=== PATIENT | female | born 1955 | race African-American/Black ===

== ENCOUNTER 2024-05-21 00:57 | Inpatient (IN) | payer OTHER ==
[~2024-05-21] VITALS: Ht 147.3 cm; Wt 78.1 kg
[2024-05-21 02:23] LABS: Basophils # (auto) 0.1 10 ^3/uL (0-0.2); Basophils % (auto) 0.7 % (0.0-2.0); Eosinophils # (auto) 0.4 10 ^3/uL (0-0.8); Eosinophils % (auto) 3.6 % (0.0-7.0); Hematocrit 27.5 % (36.0-46.0); Hemoglobin 9.4 g/dL (12.2-16.2); Lymphocytes # (auto) 2.1 10 ^3/uL (0.4-5.4); Lymphocytes % (auto) 20.6 % (10.0-50.0); Mean Corpuscular Hemoglobin 30.3 pg (28.0-32.0); Mean Corpuscular Hgb Conc. 34.1 g/dL (32.0-36.0); Mean Corpuscular Volume 88.8 fL (80.0-100.0); Monocytes # (auto) 0.7 10 ^3/uL (0-1.3); Neutrophils # (auto) 6.9 10 ^3/uL (1.6-8.6); Neutrophils % (auto) 68.1 % (37.0-80.0); Platelet Count (auto) 258 10^3/uL (140-450); Red Cell Distribution Width 14.4 % (11.8-14.3); White Blood Cell 10.2 10^3/uL (4.4-10.8)
[2024-05-21 02:30] LABS: Chloride 107 mmol/L (98-107); Potassium 5.3 mmol/L (3.5-5.1); Sodium 137 mmol/L (136-145)
[2024-05-21 02:31] LABS: Anion Gap 4 (5-15); Calcium 9.8 mg/dL (8.7-10.4); Carbon Dioxide 26 mmol/L (20-31)
[2024-05-21 02:33] LABS: INR 0.94 (0.9-1.15)
[2024-05-21 02:36] LABS: BUN/Creatinine Ratio 10.7 (10.0-20.0); Blood Urea Nitrogen 50 mg/dL (9-23); Glucose 107 mg/dL (74-106)
[2024-05-21 05:30] VITALS: PULSE 78; RESP 16; O2SAT 95
[2024-05-21] MEDS: LABETALOL HCL 20 MG/4 ML VL IV ONE (05:47)
[2024-05-21] MEDS: ASPirin 81 mg TAB PO ONE (05:55)
[2024-05-21] MEDS: HYDROcodone-ACET 5/325MG TAB PO ONE (09:27)
[2024-05-21 09:31] VITALS: PULSE 76; RESP 18; O2SAT 95
[2024-05-21] MEDS: hydrALAZINE HCL 20 MG/ML VL IV ONE (12:07)
[2024-05-21] MEDS ORDERED: DEXTROSE (50%) 50ML SYRG IV PRN (12:15)
[2024-05-21] MEDS ORDERED: NITROGLYCERIN 0.4 MG SL TAB SL PRN (12:15)
[2024-05-21] MEDS ORDERED: LABETALOL HCL 20 MG/4 ML VL IV PRN (12:30)
[2024-05-21] MEDS: METOPROLOL TARTRATE 50 MG TAB PO ONE (13:12)
[2024-05-21] MEDS: ENOXAPARIN SOD 30 MG/0.3 ML SYRINGE SC ONE (13:13)
[2024-05-21] MEDS: FUROSEMIDE 20 MG/2 ML VIAL IV ONE (13:13)
[2024-05-21 13:51] LABS: Creatinine, Urine 20.82 mg/dL (30.0-125.0)
[2024-05-21 14:08] LABS: Urine Bacteria FEW /hpf (None Seen); Urine Blood Negative /uL (Negative); Urine Clarity Clear (Clear); Urine Color Colorless (Yellow); Urine Protein, UAD 2+ (Negative); Urine Specific Gravity 1.005 (1.001-1.035); Urine Urobilinogen Normal (Negative); Urine WBC 2 /hpf (0 - 5)
[2024-05-21 14:12] LABS: Albumin 4.5 g/dL (3.2-4.8); Bilirubin, Direct 0.1 mg/dL (<0.3); Bilirubin, Total 0.5 mg/dL (0.2-1.0); Magnesium 3.5 mg/dL (1.6-2.6); Total Protein 7.1 g/dL (5.7-8.2)
[2024-05-21 15:19] LABS: Triglycerides 156 mg/dL (< 150)
[2024-05-21 15:20] LABS: LDL Cholesterol 79 mg/dL (< 100)
[2024-05-21 15:21] LABS: Cholesterol 150 mg/dL (< 200); HDL Cholesterol 43 mg/dL (40-59)
[2024-05-21] MEDS: NIFEdipine ER 30 MG TAB PO ONE (16:05)
[2024-05-21] MEDS: InsuLIN REG 1unit/0.01ml Soln (100units/ml) SC SCH (17:00)
[2024-05-21 17:20] VITALS: PULSE 84; RESP 17; O2SAT 96
[2024-05-21] MEDS: ACCU-CHEK COMFORT CURVE STRIP VI SCH (17:24)
[2024-05-21] MEDS: FUROSEMIDE 20 MG/2 ML VIAL IV SCH (18:09)
[2024-05-21] MEDS: hydrALAZINE HCL 20 MG/ML VL IV PRN (18:10)
[2024-05-21] MEDS ORDERED: amLODIPine BESYLATE 5 MG TAB PO ONE (19:00)
[2024-05-21 19:35] VITALS: PULSE 77; RESP 13; O2SAT 94
[2024-05-21] MEDS: CARVEDILOL 12.5 MG TAB PO SCH (21:59)
[2024-05-21] MEDS: ATORVASTATIN 20 MG TAB PO SCH (22:00)
[2024-05-21] MEDS ORDERED: METOPROLOL TARTRATE 50 MG TAB PO SCH (22:00)
[2024-05-21 23:28] VITALS: BP 132/63; PULSE 71; RESP 15; RESP 17; TEMP 95.4; O2SAT 97
[2024-05-22] VITALS (7 sets, daily range): BP systolic 120–133; BP diastolic 42–59; PULSE 64–82; RESP 18–20; TEMP 97.8–98.5; O2SAT 94–99
[2024-05-22] MEDS: OXYMETAZOLINE HCL 0.05 % NASAL SPRAY 15ML EACHNOSTRI SCH (00:02)
[2024-05-22] MEDS ORDERED: CLON0.1T PO (00:47)
[2024-05-22] MEDS ORDERED: ASPI1TAB20 PO (00:47)
[2024-05-22] MEDS ORDERED: METO25TA5 PO (00:47)
[2024-05-22] MEDS ORDERED: ATOR20TA50 PO (00:47)
[2024-05-22] MEDS ORDERED: MULT-1018 PO (00:47)
[2024-05-22] MEDS ORDERED: CHOL10006 PO (00:47)
[2024-05-22] MEDS: NIFEdipine ER 30 MG TAB PO SCH (10:44)
[2024-05-22] MEDS: ASPirin 81 mg TAB PO SCH (10:46)
[2024-05-22] MEDS: ENOXAPARIN SOD 30 MG/0.3 ML SYRINGE SC SCH (10:47)
[2024-05-22] MEDS: HYDROcodone-ACET 5/325MG TAB PO PRN (10:57)
[2024-05-22] MEDS: ONDANSETRON HCL 4 MG/2 ML VIAL IV PRN (17:31)
[2024-05-23 05:00] VITALS: BP 109/58; PULSE 73; RESP 18; TEMP 98; O2SAT 100
[2024-05-23 07:16] VITALS: PULSE 70
[2024-05-23 07:37] LABS: Anion Gap 10 (5-15); Carbon Dioxide 23 mmol/L (20-31); Chloride 103 mmol/L (98-107); Potassium 4.7 mmol/L (3.5-5.1); Sodium 136 mmol/L (136-145)
[2024-05-23 07:38] LABS: Calcium 9.3 mg/dL (8.7-10.4)
[2024-05-23 07:43] LABS: BUN/Creatinine Ratio 8.3 (10.0-20.0); Blood Urea Nitrogen 42 mg/dL (9-23); Glucose 110 mg/dL (74-106)
[2024-05-23 07:45] LABS: Phosphorus 6.4 mg/dL (2.4-5.1)
[2024-05-23 07:48] LABS: Basophils # (auto) 0 10 ^3/uL (0-0.2); Basophils % (auto) 0.6 % (0.0-2.0); Eosinophils # (auto) 0.3 10 ^3/uL (0-0.8); Eosinophils % (auto) 4.7 % (0.0-7.0); Hematocrit 28.7 % (36.0-46.0); Hemoglobin 9.2 g/dL (12.2-16.2); Lymphocytes # (auto) 1.8 10 ^3/uL (0.4-5.4); Lymphocytes % (auto) 25.4 % (10.0-50.0); Mean Corpuscular Hemoglobin 29.4 pg (28.0-32.0); Mean Corpuscular Hgb Conc. 32.2 g/dL (32.0-36.0); Mean Corpuscular Volume 91.5 fL (80.0-100.0); Monocytes # (auto) 0.5 10 ^3/uL (0-1.3); Monocytes % (auto) 6.6 % (0.0-12.0); Neutrophils # (auto) 4.3 10 ^3/uL (1.6-8.6); Neutrophils % (auto) 62.7 % (37.0-80.0); Platelet Count (auto) 246 10^3/uL (140-450); Red Blood Cells 3.14 10^6/uL (4.0-5.20); Red Cell Distribution Width 14.7 % (11.8-14.3); White Blood Cell 6.9 10^3/uL (4.4-10.8)
[2024-05-23 08:30] VITALS: BP 128/56; PULSE 73; RESP 20; TEMP 98.3; O2SAT 96
[2024-05-23 09:16] LABS: Uric Acid 7.8 mg/dL (3.1-7.8)
[2024-05-23] MEDS: NIFEdipine ER 30 MG TAB PO SCH (10:45)
[2024-05-23] MEDS: CARVEDILOL 3.125 MG TAB PO SCH (10:45)
[2024-05-23] MEDS ORDERED: hydrALAZINE HCL 20 MG/ML VL IV PRN (10:45)
[2024-05-23 12:35] VITALS: BP 153/55; PULSE 74; RESP 20; TEMP 99.1; O2SAT 96
[2024-05-23] MEDS ORDERED: CARV6.2517 PO (13:39)
[2024-05-23] MEDS ORDERED: NIFE1TAB31 PO (13:41)
== END 2024-05-23 15:50 | disposition home or self-care (01) | DRG 280 ==
LOC: ER 00:57 → TELE 12:22 → TELE-EAST 23:03
PROVIDERS: ADMIT Nurse Practitioner Family; ATTEND Nurse Practitioner Family
DX: I13.0 Hypertensive heart and chronic kidney disease with heart failure and stage 1 through stage 4 chronic kidney disease, or unspecified chronic kidney disease (principal); I50.41 Acute combined systolic (congestive) and diastolic (congestive) heart failure; I21.A1 Myocardial infarction type 2; I16.1 Hypertensive emergency; N17.9 Acute kidney failure, unspecified; R04.0 Epistaxis; D64.9 Anemia, unspecified; I65.21 Occlusion and stenosis of right carotid artery; E11.22 Type 2 diabetes mellitus with diabetic chronic kidney disease; E11.51 Type 2 diabetes mellitus with diabetic peripheral angiopathy without gangrene; E66.9 Obesity, unspecified; E78.5 Hyperlipidemia, unspecified; E87.5 Hyperkalemia; N18.32 Chronic kidney disease, stage 3b; F03.90 Unspecified dementia, unspecified severity, without behavioral disturbance, psychotic disturbance, mood disturbance, and anxiety; Z79.899 Other long term (current) drug therapy; Z79.84 Long term (current) use of oral hypoglycemic drugs; Z79.82 Long term (current) use of aspirin; Z68.36 Body mass index [BMI] 36.0-36.9, adult
CPT/HCPCS: 36415; 70450; 71045; 80048; 80061; 80076; 81001; 82306; 82570; 82962; 83036; 83735; 83880; 84100; 84132; 84300; 84443; 84484; 84550; 85025; 85610; 93005; 93306; 93886; 93976; 96372; 96374; 96375; 96376; 99291; G0378; J1815; J2405